=== PATIENT | male | born 1995 | race Caucasian/White ===

== ENCOUNTER 2016-10-25 14:30 | Emergency (ER) | payer BC ==
[2016-10-25 14:39] VITALS: RESP 18
[2016-10-25] MEDS ORDERED: ONDANSETRON 4 MG/2 ML VIAL ONE (14:58)
[2016-10-25] MEDS ORDERED: ONDANSETRON 4 MG/2 ML VIAL IVP ONE (15:00)
[2016-10-25] MEDS ORDERED: ACETAMINOPHEN 325 MG TAB PO ONE ×2 (15:00→16:18)
[2016-10-25] MEDS ORDERED: NS 1,000 ML IV ONE (15:00)
[2016-10-25] MEDS ORDERED: ACETAMINOPHEN 325 MG TAB ONE ×2 (15:08→15:10)
--- NOTE | 2016-10-25 17:29 | EDPHY ---
H & P Stated Complaint: Flu sxs x 4 days;seen @ [facility];dx'd w/virus2 Time Seen by Provider: 10/25/16 15:21 HPI/ROS: Chief complaint: Nausea, vomiting, body aches, fever HPI: 21-year-old male presenting with 3 days of nausea, vomiting, nasal congestion, body aches, fever. Patient was seen by [facility] and diagnosed with viral illness. He has had mild sore throat with some congestion. Dry nonproductive cough. He has not taken any medications. States he has been unable to keep anything down today. ROS: 10 point Review of Systems is negative except as noted in the HPI. Past medical history: None Medications: None Allergies: None Physical exam: Gen: Awake, Alert, No Distress HEENT: Nose: no rhinorrhea Eyes: PERRLA, EOMI Mouth: Moist mucosa, mild pharyngeal erythema without exudate or edema Neck: Supple, no JVD Chest: nontender, lungs clear to auscultation Heart: S1, S2 normal, no murmur Abd: Soft, non-tender, no guarding Back: no CVA tenderness, no midline tenderness Ext: no edema, non-tender Skin: no rash Neuro: CN II-XII intact, Sensation grossly intact, Strength 5/5 in bilateral upper and lower extremities - Personal History Current Tetanus Diphtheria and Acellular Pertussis (TDAP): Yes - Medical/Surgical History Other PMH: neg per hx - Social History Smoking Status: Never smoked Constitutional: Initial Vital Signs Temperature (C) 37.2 C 10/25/16 14:35 Heart Rate 106 H 10/25/16 14:35 Respiratory Rate 18 10/25/16 14:35 Blood Pressure 117/71 10/25/16 14:35 O2 Sat (%) 98 10/25/16 14:35 O2 Delivery Mode Room Air Allergies/Adverse Reactions: No Known Allergies Allergy (Unverified 10/25/16 14:35) Home Medications: Medication Instructions Recorded NK [No Known Home Meds] 10/25/16 Medical Decision Making ED Course/Re-evaluation: 21-year-old male with flu-like illness. He has not been taking anything for his fever. The nausea here. He is mildly dehydrated. I have given him IV fluids, gas drawn and acetaminophen. He had his fever has come down. He is tolerating p. o.. Will discharge with instructions to alternate ibuprofen and acetaminophen every 4 hours for fever and aches and pains. Will also send him home with ondansetron ODT. He will follow up at work [facility] in 2 3 days if symptoms are not improving. He will return here for any worsening problems. - Data Points Laboratory Results: 10/25/16 14:35 Influenza Typ A,B (DFA) NEGATIVE FOR FLU (NEGATIVE) Medications Given: Discontinued Medications Acetaminophen (Tylenol) 650 mg PO EDNOW ONE Stop: 10/25/16 15:01 Last Admin: 10/25/16 15:00 Dose: 650 mg Sodium Chloride (Ns) 1,000 mls @ 0 mls/hr IV ONCE ONE PRN Reason: Wide Open Stop: 10/25/16 15:01 Last Admin: 10/25/16 15:00 Dose: 1,000 mls Ondansetron HCl (Zofran) 4 mg IVP EDNOW ONE Stop: 10/25/16 15:01 Last Admin: 10/25/16 15:00 Dose: 4 mg Departure - Departure Disposition: Home, Routine, Self-Care Clinical Impression: Viral illness, Dehydration, Vomiting Condition: Good Instructions: Viral Syndrome (ED), Acute Nausea and Vomiting (ED) Additional Instructions: Alternate Tylenol and ibuprofen every 4 hours for aches, pains, fevers, chills. Drink plenty fluids You may take ondansetron for nausea. Follow up with student health in 2-3 days if symptoms are not improving. Return to the emergency department for increasing fever, uncontrolled nausea vomiting, or any other concerns. Referrals: NONE *PRIMARY CARE P,. [Primary Care Provider] - As per Instructions [facility] [Outside] - As per Instructions
[2016-10-25] MEDS ORDERED: ONDANSETRON 4MG PREPACK#2 BTL TAKEHOME ONE ×2 (17:32→18:09)
[2016-10-25 18:12] VITALS: BP 136/85; PULSE 89; TEMP 98.4; O2SAT 98
== END 2016-10-25 18:11 | disposition home or self-care (01) ==
DX: B34.9 Viral infection, unspecified (principal); E86.0 Dehydration
CPT/HCPCS: 96374; J2405